=== PATIENT | female | born 1985 | race Caucasian/White ===

== ENCOUNTER 2018-08-09 16:24 | Emergency (ER) | payer OTHER ==
[2018-08-09 16:48] VITALS: BP 148/80; PULSE 80; TEMP 98.4; BMI 34.6
--- NOTE | 2018-08-09 17:49 | PDOC ---
History of Present Illness - General Chief Complaint: Back Pain Stated Complaint: BACK PAIN Time Seen by Provider: 08/09/18 16:53 History Source: Patient Exam Limitations: No Limitations - History of Present Illness Initial Comments: 08/09/18 17:43 HISTORY OF PRESENT ILLNESS: This is a 32-year-old woman denies medical history presents emergency department for evaluation of bilateral flank pain which worsens with deep inspiration. Patient also reports suprapubic pain. Patient denies any dysuria but does report urinary frequency. Patient reports she did slip and fall while chasing her son 2 days ago landing on her left side. No recent travel or sick contacts. PAST MEDICAL HISTORY: Denies past medical history SURGICAL HISTORY: Denies ALLERGIES: No known drug allergies REVIEW OF SYSTEMS General/Constitutional: Denies fever or chills. Denies weakness, weight change. HEENT: Denies change in vision. Denies ear pain or discharge. Denies sore throat. Cardiovascular: Denies chest pain or shortness of breath. Respiratory: Denies cough, wheezing, or hemoptysis. Gastrointestinal: Denies nausea, vomiting, diarrhea or constipation. Denies rectal bleeding. Genitourinary: Denies dysuria, frequency, or change in urination. Musculoskeletal: Bilateral flank pain. Denies neck or back pain. Skin and breasts: Denies rash or easy bruising. Neurologic: Denies headache, vertigo, loss of consciousness, or loss of sensation. Psychiatric: Denies depression or anxiety. Endocrine: Denies increased thirst. Denies abnormal weight change. Hematologic/Lymphatic: Denies anemia, easy bleeding, or history of blood clots. Allergic/Immunologic: Denies hives or skin allergy. Denies latex allergy. PHYSICAL EXAM General Appearance: Well-appearing, appropriately dressed. No apparent distress , no intoxication. Respiratory/Chest: Lungs CTAB. No shortness of breath, chest tenderness, respiratory distress, accessory muscle use. No crackles, rales, rhonchi, stridor , wheezing, dullness Cardiovascular: RRR. S1, S2. No JVD, murmur, bradycardia, tachycardia. Abdomen: +BS. SNTND. No palpable masses. Musculoskeletal/Extremities: Normal inspection. FROM of all extremities, normal capillary refill. Pelvis Stable. Bilateral CVA tenderness. No tenderness to extremities, pedal edema, swelling, erythema or deformity. Integumentary: Appropriate color, dry, warm. No cyanosis, erythema, jaundice or rash Neurologic: electrocardiograph operator II-XII intact. Fully oriented, alert. Appropriate mood/affect. Motor strength 5/5. No appreciable EOM palsy, facial droop or sensory deficit. Past History - Past Medical History Allergies/Adverse Reactions: Allergies Allergy/AdvReac Type Severity Reaction Status Date / Time No Known Allergies Allergy Verified 01/11/15 07:47 Home Medications: Ambulatory Orders Vitamins (Sjr) - 1 tab PO DAILY 01/11/15 COPD: No CHF: No - Surgical History Abdominal Surgery: Yes - Immunization History Immunization Up to Date: Yes - Suicide/Smoking/Psychosocial Hx Smoking Status: No Smoking History: Never smoked Number of Cigarettes Smoked Daily: 0 Hx Alcohol Use: No Drug/Substance Use Hx: No Substance Use Type: None *Physical Exam - Vital Signs Last Vital Signs Temp Pulse Resp BP Pulse Ox 98.4 F 80 16 148/80 99 08/09/18 16:45 08/09/18 16:45 08/09/18 16:45 08/09/18 16:45 08/09/18 16:45 Moderate Sedation - Procedure Monitoring Vital Signs: Procedure Monitoring Vital Signs Temperature 98.4 F 08/09/18 16:45 Pulse Rate 80 08/09/18 16:45 Respiratory Rate 16 08/09/18 16:45 Blood Pressure 148/80 08/09/18 16:45 O2 Sat by Pulse Oximetry (%) 99 08/09/18 16:45 Medical Decision Making - Medical Decision Making 08/09/18 17:43 A/P: 32-year-old woman with bilateral flank pain No CVA tenderness Lungs clear to auscultation bilaterally No abdominal tenderness or guarding noted. DDx: UTI, musculoskeletal pain, pneumonia. urine, chest x-ray 08/09/18 18:42 Chest x-rays read by me: Angles clear. Cardiac silhouette is within normal limits. No focal consolidations or infiltrates are present. Urinalysis is negative. I will discharge the patient home with instructions to take [id number] NSAID pain reliever. *DC/Admit/Observation/Transfer Diagnosis at time of Disposition: Pain in lower back Qualifiers: Chronicity: acute Back pain laterality: bilateral Sciatica presence: without sciatica Qualified Code(s): M54.5 - Low back pain - Discharge Dispostion Disposition: HOME Condition at time of disposition: Stable Decision to Admit order: No - Referrals - Patient Instructions Additional Instructions: Take Tylenol or Motrin as needed for pain. Follow manufacturers instructions for appropriate dosage. Try not to walk or bear weight as much as possible for the next 3 days. Warm moist heat applied to your back may help alleviate pain. Return to emergency department for discoloration of the foot, numbness or tingling to the foot, worsening pain, or any other concerns. Thank you very much for choosing us to provide your emergent healthcare needs. - Post Discharge Activity
[2018-08-09 17:55] LABS: URINE APPEARANCE CLEAR; URINE BILIRUBIN NEGATIVE (<2.0 mg/dL); URINE COLOR YELLOW; URINE GLUCOSE (UA) NEGATIVE (NEGATIVE); URINE KETONE NEGATIVE (NEGATIVE); URINE LEUK ESTERASE NEGATIVE (NEGATIVE); URINE NITRITE NEGATIVE (NEGATIVE); URINE PROTEIN NEGATIVE (NEGATIVE)
[2018-08-09 17:56] LABS: HCG,QUALITATIVE URINE Negative
== END 2018-08-09 18:47 | disposition home or self-care (01) ==
LOC: JERFT 16:24
DX: M54.5 Low back pain (principal)
CPT/HCPCS: 71046-TC-FY; 81003; 84703; 87086; 99281-25